=== PATIENT | female | born 1970 | race Caucasian/White ===

== ENCOUNTER 2024-04-02 20:28 | Emergency (ER) | payer SELFPAY ==
[~2024-04-02] VITALS: Ht 160 cm; Wt 84.4 kg
[2024-04-02 20:32] VITALS: O2SAT 98
[2024-04-02 20:36] VITALS: BP 151/78; PULSE 85; RESP 16; TEMP 98; O2SAT 99
[2024-04-03] MEDS: VANCOMYCIN 1G PREMIX 200 ML IV STA (02:35)
[2024-04-03] MEDS: SODIUM CHLORIDE 0.9% 1,000 ML IV ONE (02:39)
[2024-04-03] MEDS: CEFTRIAXONE 1GM/50ML 50 ML IV ONE (02:40)
[2024-04-03 02:44] LABS: BASOPHILS % 1.5 % (0.0-2.0); HEMATOCRIT. 44.6 % (36.0-48.0); HEMOGLOBIN. 14.9 g/dL (12.0-16.0); LYMPHOCYTES % 31.9 % (20.0-50.0); MEAN CORPUSCULAR HEMOGLOBIN 31.5 pg (28.0-32.0); MEAN CORPUSCULAR HGB CONC 33.5 g/dL (31.0-37.0); MEAN CORPUSCULAR VOLUME 94.2 fL (81.0-99.0); MEAN PLATELET VOLUME 8.3 fl (7.4-10.4); MONOCYTES % 7.6 % (2.0-8.0); PLATELET 234 x1000/uL (130-400); RED BLOOD CELL COUNT 4.74 mill/uL (4.2-5.4); RED CELL DISTRIBUTION WIDTH 13.1 % (11.6-14.6); WHITE BLOOD COUNT 4.8 x1000/uL (4.5-11.0)
[2024-04-03 02:49] LABS: CHLORIDE 104 mEq/L (98-107); POTASSIUM 3.4 mEq/L (3.5-5.1); SODIUM 138 mEq/L (136-145)
[2024-04-03 02:50] LABS: CARBON DIOXIDE 28 mEq/L (21-32)
[2024-04-03 02:51] LABS: CALCIUM 10.1 mg/dL (8.7-10.4)
[2024-04-03 02:55] LABS: CREATININE 0.9 mg/dL (0.6-1.0); GLUCOSE 94 mg/dL (70-105); UREA NITROGEN BLOOD 15 mg/dL (9-23)
[2024-04-03 03:09] LABS: PARTIAL THROMBOPLASTIN TIME 27.3 sec (23.4-31.0)
[2024-04-03] MEDS ORDERED: SULF1TAB48 MT (04:31)
== END 2024-04-03 05:33 | disposition home or self-care (01) ==
LOC: ER 20:28
DX: L03.115 Cellulitis of right lower limb (principal); E78.00 Pure hypercholesterolemia, unspecified
CPT/HCPCS: 99284; 80048; 85025; 85610; 85730; 87040; 36415; 73630; 96365; J0696; J3370; J7030; Z7610

== ENCOUNTER 2024-04-08 06:02 | Emergency (ER) | payer SELFPAY ==
[~2024-04-08] VITALS: Ht 160 cm; Wt 82.4 kg
[~2024-04-08 06:02] MED LIST: SULF1TAB48 MT
[2024-04-08 06:16] VITALS: O2SAT 99
[2024-04-08] MEDS ORDERED: BACITRACIN ZINC OINT UDPKT TOP ONE (07:00)
[2024-04-08 08:17] LABS: BASOPHILS % 0.4 % (0.0-2.0); EOSINOPHILS % 4.1 % (0.0-5.0); HEMATOCRIT. 45.9 % (36.0-48.0); HEMOGLOBIN. 15.1 g/dL (12.0-16.0); LYMPHOCYTES % 27.6 % (20.0-50.0); MEAN CORPUSCULAR HEMOGLOBIN 31.1 pg (28.0-32.0); MEAN CORPUSCULAR HGB CONC 32.8 g/dL (31.0-37.0); MEAN CORPUSCULAR VOLUME 94.8 fL (81.0-99.0); MEAN PLATELET VOLUME 8.1 fl (7.4-10.4); MONOCYTES % 5.7 % (2.0-8.0); NEUTROPHILS % 62.2 % (40.0-76.0); PLATELET 251 x1000/uL (130-400); RED BLOOD CELL COUNT 4.84 mill/uL (4.2-5.4); RED CELL DISTRIBUTION WIDTH 13.5 % (11.6-14.6); WHITE BLOOD COUNT 4.9 x1000/uL (4.5-11.0)
[2024-04-08 08:20] LABS: CHLORIDE 106 mEq/L (98-107); POTASSIUM 4.3 mEq/L (3.5-5.1); SODIUM 138 mEq/L (136-145)
[2024-04-08 08:21] LABS: CARBON DIOXIDE 26 mEq/L (21-32)
[2024-04-08] MEDS: BACITRACIN ZINC OINT UDPKT TOP NR (08:21)
[2024-04-08 08:22] LABS: CALCIUM 10.3 mg/dL (8.7-10.4)
[2024-04-08] MEDS: ACETAMINOPHEN 325MG TABLET PO NR (08:22)
[2024-04-08 08:26] LABS: CREATININE 0.9 mg/dL (0.6-1.0); GLUCOSE 86 mg/dL (70-105); UREA NITROGEN BLOOD 17 mg/dL (9-23)
[2024-04-08] MEDS ORDERED: DOXY100C74 MT (08:49)
[2024-04-08] MEDS ORDERED: MUPI15CR11 TP (08:49)
[2024-04-08 08:54] VITALS: BP 151/87; PULSE 76; RESP 16; TEMP 36.89184; O2SAT 99
== END 2024-04-08 09:02 | disposition home or self-care (01) ==
LOC: ER 06:02
DX: L97.319 Non-pressure chronic ulcer of right ankle with unspecified severity (principal); I87.2 Venous insufficiency (chronic) (peripheral); L03.115 Cellulitis of right lower limb; E78.00 Pure hypercholesterolemia, unspecified; Z98.890 Other specified postprocedural states
CPT/HCPCS: 36415; 80048; 85025; 93971; 99284